=== PATIENT | male | born 1950 ===

== ENCOUNTER 2019-06-08 02:24 | Outpatient (CLI) | payer MEDICARE, OTHER | END 2019-06-08 23:59 | disposition home or self-care (01) | LOC: DIABETIC 02:24 | PROVIDERS: ATTEND Family Medicine | DX: E11.65 Type 2 diabetes mellitus with hyperglycemia (principal); Z79.84 Long term (current) use of oral hypoglycemic drugs | CPT/HCPCS: G0108 ==

== ENCOUNTER 2019-07-11 00:33 | Outpatient (CLI) | payer MEDICARE, OTHER | END 2019-07-11 23:59 | disposition home or self-care (01) | LOC: DIABETIC 00:33 | PROVIDERS: ATTEND Family Medicine | DX: E11.65 Type 2 diabetes mellitus with hyperglycemia (principal); Z79.84 Long term (current) use of oral hypoglycemic drugs | CPT/HCPCS: G0108 ==

== ENCOUNTER 2019-10-11 04:36 | Outpatient (CLI) | payer MEDICARE, OTHER | END 2019-10-11 23:59 | disposition home or self-care (01) | LOC: DIABETIC 04:36 | PROVIDERS: ATTEND Family Medicine | DX: E11.65 Type 2 diabetes mellitus with hyperglycemia (principal); Z79.84 Long term (current) use of oral hypoglycemic drugs | CPT/HCPCS: G0108 ==